=== PATIENT | male | born 1930 | race Caucasian/White ===

== ENCOUNTER → 2016-09-20 | Outpatient (CLI) | payer MEDICARE ==
--- NOTE | 2016-09-20 20:08 | CT ---
EXAMINATION TYPE: CT chest wo con DATE OF EXAM: 09/20/2016 7:54 PM COMPARISON: 03/17/2016 HISTORY: Evaluate ascending aortic aneurysm. CT DLP: 521.00 mGycm Automated exposure control for dose reduction was used. FINDINGS: The lungs are clear of infiltrate. There is no pleural effusion. There is no pericardial effusion. Th ere is coronary artery calcification. Thoracic aorta is atheromatous. The ascending aorta measures 4. 6 cm. There are no hilar masses. There is no mediastinal adenopathy. There is spurring in the thoraci c spine. I see no compression fracture. 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 ATHEROSCLEROT IC VASCULAR DISEASE. THERE IS A 5 CM CYST ON THE LATERAL LEFT KIDNEY THAT IS UNCHANGED.
== END | disposition home or self-care (01) ==
LOC: RADCTMAIN 19:19
PROVIDERS: ATTEND Internal Medicine Interventional Cardiology
DX: I71.2 Thoracic aortic aneurysm, without rupture (principal); I70.0 Atherosclerosis of aorta
CPT/HCPCS: 71250

== ENCOUNTER → 2018-01-16 | Outpatient (CLI) | payer MEDICARE ==
--- NOTE | 2018-01-16 16:17 | CT ---
EXAMINATION TYPE: CT angio chest DATE OF EXAM: 01/16/2018 COMPARISON: 09/20/2016 HISTORY: Follow up Aortic aneurysm per patient CT DLP: 295.6 mGycm CONTRAST: CTA thoracic aorta with 3-D reconstruction is performed and with IV Contrast, patient injected with 1 00 mL of Isovue 370. Contrast CTA of the thoracic aorta was performed from the lung apex through the upper abdomen. 3D re construction imaging obtained at a separate workstation. CT Chest: THORACIC AORTA: Stable ascending thoracic aortic aneurysm measuring 4.6 cm AP dimension. No evidence for complicating factor. Mild atheromatous changes seen. There is no evidence for dissection or cinthia aortic collection. LUNGS: The lungs are clear and free of infiltrate or atelectasis. No pulmonary nodule or mass is det ected. Hyperinflation compatible with COPD. No pleural effusion or CT evidence of interstitial lung d isease. MEDIASTINUM: No evidence for mediastinal hematoma. The heart is not enlarged. No evidence for med iastinal mass or adenopathy. HILAR STRUCTURES: No evidence for mass. No hilar adenopathy is appreciated. OTHER: Stable left renal cyst. IMPRESSION- 1. Stable ascending thoracic aortic aneurysm.
== END | disposition home or self-care (01) ==
LOC: RADCTMAIN 14:40
PROVIDERS: ATTEND Internal Medicine Interventional Cardiology
DX: I71.2 Thoracic aortic aneurysm, without rupture (principal)
CPT/HCPCS: 82565; 84520; 71275; 36415; Q9967

== ENCOUNTER → 2018-11-15 | Outpatient (CLI) | payer MEDICARE ==
--- NOTE | 2018-11-15 15:45 | CT ---
EXAMINATION TYPE: CT angio thor/abd pel aorta DATE OF EXAM: 11/15/2018 COMPARISON: CTA chest January 16, 2018 HISTORY: AAA CT DLP: 1042.9 mGycm. Automated Exposure Control for Dose Reduction was Utilized. CONTRAST: CTA scan of the thorax, abdomen and pelvis is performed without oral and without and with IV Contrast , patient injected with 100 mL of Isovue 370. Aneurysm protocol with Three-D reconstructed images cre ated prior workstation and reviewed. FINDINGS: VASCULAR: Ascending aorta measures up to 4.5 cm diameter transversely axial image 30 significant delong ge from most recent CT chest study. There is moderate mixed plaque in aortic arch extending into desc ending aorta. There is bovine type arch redemonstrated which is normal variant. There is persistent m oderate plaque in the slightly ectatic descending thoracic aorta. There is patent celiac artery, SMA, bilateral single renal arteries and SARAH identified with moderate mixed plaque. No significant stenos is is seen. No greater than 3 cm AAA is evident. Moderate to severe calcified plaque extends into leyla ac artery branches without significant stenosis. Moderate plaque bilateral common femoral arteries is seen in the groin region bilaterally without significant stenosis. No linear hypodensity to suggest dissection is present. LUNGS: There are small right greater than left bilateral pleural effusions on current study new from most recent prior study. Lungs otherwise are grossly clear. MEDIASTINUM: There are no greater than 1 cm hilar or mediastinal lymph nodes. No pericardial effus ion is seen. Cardiomegaly is redemonstrated. There is three-vessel coronary artery calcification and /or stents again seen. OTHER: No additional significant abnormality is seen. LIVER/GB: No significant abnormality is appreciated. PANCREAS: No significant abnormality is seen. SPLEEN: No significant abnormality is seen. ADRENALS: No significant abnormality is seen. KIDNEYS: Stable partially exophytic 4.8 cm simple appearing cyst laterally upper to mid pole level le ft kidney axial image 62 series 6. BOWEL: No significant abnormality is seen. GENITAL ORGANS: No gross abnormality seen. LYMPH NODES: No greater than 1cm abdominal or pelvic lymph nodes are appreciated. OSSEOUS STRUCTURES: S-shaped scoliosis with moderate multilevel spurring and disc space narrowing thr oughout the thoracolumbar spine is present. OTHER: No significant additional abnormality is seen. IMPRESSION: Comment for technical differences, stable 4.5 cm aneurysm of the ascending aorta. No AAA.
== END ==
LOC: RADCTMAIN 14:04
PROVIDERS: ATTEND Internal Medicine Interventional Cardiology
DX: I71.2 Thoracic aortic aneurysm, without rupture (principal)
CPT/HCPCS: 71275; 74174; Q9967